=== PATIENT | female | born 1940 | race Caucasian/White ===

== ENCOUNTER 2016-10-18 01:40 | Observation (INO) | payer OTHER, MEDICARE ==
[~2016-10-18] VITALS: Ht 160 cm; Wt 71.2 kg
--- NOTE | 2016-10-18 02:52 | ED AMS/SEIZURE/WEAK/DIZZY ---
History of Present Illness General Chief Complaint: Dizziness Stated Complaint: DIZZINESS, AND NAUSEA Source: patient Exam Limitations: no limitations Vital Signs & Intake/Output Vital Signs & Intake/Output Vital Signs Date Time Temp Pulse Resp B/P B/P Pulse O2 O2 Flow FiO2 Mean Ox Delivery Rate 10/18 1453 98.8 59 18 124/68 98 / 0630 98.6 60 18 120/72 96 Room Air 10/18 0604 96.9 62 16 152/67 98 Room Air 10/18 0540 97.0 62 16 143/61 99 Room Air 10/18 0306 70 154/65 07/ 0306 97.2 70 16 157/65 98 Room Air 10/18 0147 96.9 69 15 185/73 97 Room Air Allergies Coded Allergies: NO KNOWN ALLERGIES (02/17/12) Reconcile Medications No Known Home Medications Triage Note: BIBA FROM HOME FOR C/O DIZZINESS AND NAUSEA THAT STARTED AROUND 2230 TONIGHT WHILE SITTING. DENIES LOC, INJURY OR FALL. IN NAD UPON ARRIVAL. Triage Nurses Notes Reviewed? yes HPI: Patient presents for evaluation of a severe spinning dizziness that began abruptly between 10:30 and 11:00 last evening. Patient states she had just finished bathing and was putting curlers in her hair when symptoms began. She denies any prior episodes. She denies any preceding viral symptoms chest pain palpitations headache visual changes tinnitus or trauma. Symptoms worsen with movement. Fortunately the patient's dizziness is currently resolved. Past History Travel History Traveled to [place] past 21 day No Medical History Any Pertinent Medical History? 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 No Review of Systems Review of Systems Constitutional: Reports: no symptoms. EENTM: Reports: see HPI. Respiratory: Reports: no symptoms. Cardiovascular: Reports: no symptoms. GI: Reports: no symptoms. Genitourinary: Reports: no symptoms. Musculoskeletal: Reports: no symptoms. Skin: Reports: no symptoms. Neurological/Psychological: Reports: no symptoms. Hematologic/Endocrine: Reports: no symptoms. Immunologic/Allergic: Reports: no symptoms. All Other Systems: Reviewed and Negative Physical Exam Physical Exam General Appearance: SEE BELOW Comments: Gen.: Well-nourished, well-developed, no acute respiratory distress. Head: Normocephalic, atraumatic. Eyes: Normal inspection bilaterally, Hallpike positive to the right Ears: Normal inspection bilaterally, Nose: Normal inspection Throat/mouth : Moist mucosa Neck: Supple, full range of motion, no goiter Heart: Regular rate and rhythm, systolic murmur consistent with aortic stenosis radiating up into the carotid arteries Lungs: Clear to auscultation bilaterally with normal air entry Chest: Nontender Back: Normal range of motion Abdomen: Soft, nontender, nondistended, normal bowel sounds Extremities: Normal range of motion grossly, equal radial pulses, no cyanosis clubbing or edema Neurologic: Cranial nerves grossly intact, speech is clear Skin: warm and dry Psychiatric: Calm, cooperative, no apparent delusions or hallucinations Core Measures ACS in differential dx? No CVA/TIA Diagnosis: No Severe Sepsis Present: No Septic Shock Present: No Progress Differential Diagnosis: arrythmia, anemia, benign positional vertigo, CVA/stroke , dehydration, GI bleed, hypoglycemia, hypoxia, postural hypotension, vertebrobasilar insuff, VERTIGO Plan of Care: Orders Procedure Date/time Status CBC WITHOUT DIFFERENTIAL 10/19 0600 Active Regular Diet 10/18 B Active PROTHROMBIN TIME 10/18 1305 Complete CBC WITHOUT DIFFERENTIAL 10/18 1200 Complete BLOOD PRODUCT PICKUP 10/18 0758 Active Vital Signs 10/18 0638 Active Teach/Educate 10/18 06 Active Pain Treatment and Response 10/18 06 Active Nutritional Intake, Monitor 10/18 06 Active Isolation 10/18 06 Active Intake & Output 10/18 06 Active Patient Care Conference 10/18 06 Active Activity/Ambulation 10/18 06 Active BLOOD PRODUCT PICKUP 10/18 0531 Active Pathway - chart 10/18 526 Active Lab Add-on Test 10/18 526 Active Lab Add-on Test 10/18 524 Active Pathway - chart 10/18 05 Active Patient Data 10/[address] in observation 10/18 512 Active Misc Message 10/18 512 Active ED Holding Orders 10/18 512 Active Vital Signs 10/18 512 Active Code Status 07/02 0513 Active Patient Data 10/18 0426 Active TYPE & SCREEN (NOT X-MATCH) 10/18 0340 Complete LEUKOCYTE POOR (PACKED CELLS) 10/18 0328 Active TOTAL IRON BINDING CAPACITY 10/18 0303 Active RETICULOCYTE COUNT 10/18 0303 Complete GLYCOSYLATED HGB 10/18 0303 Active FOLIC ACID 10/18 0303 Active FERRITIN 10/18 0303 Active SERUM IRON 10/18 0303 Active VITAMIN B12 10/18 0303 Active MISTAKE 10/18 0251 Active THYROID STIMULATING HORMONE 10/18 0251 Active TROPONIN LEVEL 10/18 0251 Active CBC WITHOUT DIFFERENTIAL 10/18 025 Complete BASIC METABOLIC PANEL 10/18 0251 Active EKG 10/18 0251 Active Intake & Output 10/18 0148 Active VTE Mechanical Prophylaxis 10/18 UNK Active MISTAKE 10/18 UNK Active Nursing Misc 10/18 UNK Active Hemoccult 10/18 UNK Active Heat/Cold Therapy 10/18 UNK Active ECHOCARDIOGRAM 10/18 UNK Active Current Medications Sig/Ihsan Start time Last Medication Dose Stop Time Status Admin Acetaminophen 650 MG Q6P PRN 10/18 0530 AC (Tylenol) Acetaminophen/ 1 TAB Q6P PRN 10/18 0530 AC Hydrocodone Bitart (Vicodin) Oxycodone/ 2 TAB Q6P PRN 10/18 0530 AC Acetaminophen (Percocet) Laboratory Tests 10/18/16 1357: PT 12.5, INR 1.19 10/18/16 1255: CBC w Diff MAN DIFF ORDERED, RBC 4.77, MCV 64.9 L, MCH 19.5 L, RDW 30.0 H, MPV 8.1, Gran % 59.8, Lymphocytes % 28.9, Monocytes % 9.6 H, Eosinophils % 1.7, Basophils % 0 L, Absolute Granulocytes 3.8, Absolute Lymphocytes 1.8, Absolute Monocytes 0.6, Absolute Eosinophils 0.1, Absolute Basophils 0, Platelet Estimate VERIFIED BY SMEAR, Polychromasia 1+, Hypochromic-Microcytic 2+, Poikilocytosis 1 +, Anisocytosis 2+, Microcytic Cells 2+, Ovalocytes 1+, Elliptocytes , Schistocytes , PUBS MCHC 30.0 L 10/18/16 0303: Anion Gap 9, Estimated GFR > 60, BUN/Creatinine Ratio 17.8, Glucose 113 H, Hemoglobin A1c Pending, Calcium 8.8, Iron 10 L, TIBC 438, Ferritin 3.4 L, Troponin I < 0.01, Vitamin B12 327, Folate 19.1, TSH 2.960, CBC w Diff MAN DIFF ORDERED, RBC 3.84 L, MCV 57.3 L, MCH 16.5 L, RDW 21.6 H, MPV 7.5, Segmented Neutrophils 83 H, Lymphocytes 12 L, Monocytes 3, Eosinophils 1, Basophils 1, Platelet Estimate ADEQUATE, Polychromasia 1+, Hypochromic-Microcytic 3+, Poikilocytosis 2+, Anisocytosis 3+, Microcytic Cells 3+, Elliptocytes 2+, PUBS MCHC 28.7 L, Retic Count 1.65 Diagnostic Imaging: Discussed w/RAD: CT Scan. Radiology Impression: PATIENT: GALA HUNTER PRESENT AGE: 76 PATIENT ACCOUNT NO: [id number] : 40 LOCATION: ER ORDERING PHYSICIAN: SHARAD MILLER MD SERVICE DATE: 10/18/16 EXAM TYPE: CAT - CT HEAD WO IV CONTRAST EXAMINATION: CT HEAD WITHOUT CONTRAST CLINICAL INFORMATION: Dizziness. Nausea. COMPARISON: None TECHNIQUE: Contiguous axial imaging was performed from the skull base to vertex without intravenous administration of contrast. DLP: 565.17 mGy-cm FINDINGS: There is no evidence of acute intracranial hemorrhage or territorial infarction. No abnormal mass effect or midline shift is seen. Paulino to white matter differentiation is well preserved. No extra-axial fluid collections are identified. There is atrophy with prominence of the ventricles and the sulci and hypodensity of the periventricular white matter due to chronic small vessel ischemic disease. There is vascular calcifications of the internal carotid arteries bilaterally. The osseous structures and soft tissues are normal. The mastoid air cells and visualized portions of the paranasal sinuses are well aerated. IMPRESSION: No acute intracranial pathology. DICTATED BY: RONALD MORAN MD DATE/TIME DICTATED:[address] CLAIMS [address] RIGHT OF WAY:TERRENCE DATE/TIME TRANSCRIBED:10/18/16324 CONFIDENTIAL, DO NOT COPY WITHOUT APPROPRIATE AUTHORIZATION. <Electronically signed in Other Vendor System> SIGNED BY: RONALD MORAN MD 10/18/16 0330 Initial ED EKG: NSR, rate (64), nonspecific ST T wave chg Comments: 10/18/2016 3:49:50 AM I have updated Gala on test results. She states that she did have a blood transfusion when she was much younger. She states that there is a number of family members with iron deficiency anemia. She declined rectal examination given the likelihood that this is iron deficiency. Transfusion is ordered to be given emergently given the patient's symptoms. Departure Departure Disposition: STILL A PATIENT Condition: Stable Clinical Impression Primary Impression: Symptomatic anemia Secondary Impressions: ST segment changes on electrocardiogram Referrals: OBINNA SAUCEDO,HILDA Hardin (PCP/Family) Departure Forms: Customer Survey General Discharge Information Prescriptions: Current Visit Scripts No Known Home Medications Observation Note Sp[facility] With: [facility]YL CON[facility] Physician Advisor Notified: SARA SAUCEDO,VALENCIA Carlos Place Patient In: Non-ED OBS Care Area Rationale for Observation: My rational for observation is as follows patient has a severe anemia with symptoms consisting of severe dizziness/vertigo. Her symptoms make her a poor candidate for outpatient management given the difficulties in compliance with outpatient treatment. She would be at risk of falling with subsequent injury. I feel she now requires hospitalization for blood transfusion and repeat hematocrit and hemoglobin. This patient also has nonspecific ST segment changes on EKG that could reflect demand ischemia given her decreased oxygen carrying capacity of the blood. Repeat EKG and troponin should be considered to monitor for any acute changes. Critical Care Note Critical Care Note Critical Care Time: 30-74 min
[2016-10-18 03:08] LABS: MEAN CORPUSCULAR HGB 16.5 PG (27.0-31.0); RED BLOOD CELL CT 3.84 /CUMM (4.20-5.40); WHITE BLOOD CELL COUNT 7.2 /CUMM (4.8-10.8)
[2016-10-18 03:15] LABS: MEAN CORPUSCULAR HGB CONC 28.7 G/DL (33.0-37.0); MEAN CORPUSCULAR VOLUME 57.3 FL (81.0-99.0); MEAN PLATELET VOLUME 7.5 FL (7.4-10.4); PLATELET COUNT 369 /CUMM (130-400); RBC DISTRIBUTION WIDTH 21.6 % (11.5-14.5)
--- NOTE | 2016-10-18 03:30 | CT SCAN REPORT ---
EXAMINATION: CT HEAD WITHOUT CONTRAST CLINICAL INFORMATION: Dizziness. Nausea. COMPARISON: None TECHNIQUE: Contiguous axial imaging was performed from the skull base to vertex without intravenous administration of contrast. DLP: 565.17 mGy-cm FINDINGS: There is no evidence of acute intracranial hemorrhage or territorial infarction. No abnormal mass effect or midline shift is seen. Paulino to white matter differentiation is well preserved. No extra-axial fluid collections are identified. There is atrophy with prominence of the ventricles and the sulci and hypodensity of the periventricular white matter due to chronic small vessel ischemic disease. There is vascular calcifications of the internal carotid arteries bilaterally. The osseous structures and soft tissues are normal. The mastoid air cells and visualized portions of the paranasal sinuses are well aerated. IMPRESSION: No acute intracranial pathology.
--- NOTE | 2016-10-18 04:29 | History & Physical ---
CASIMIRO SAUCEDO,[facility] 10/18/16 0429: General Information and HPI MD Statement: I have seen and personally examined ELIANE HUNTER and documented this H&P. Source of Information: patient Exam Limitations: no limitations History of Present Illness: Patient is a 76-year-old female with no significant past medical history presenting with chief complaint of dizziness. Patient states that she is taking a bath and then at around 10:30 she was lying down. When she stood up she began to have dizziness in the room began spinning. She notes she also had a slight headache when the dizziness occurred. She said the symptoms lasted from about 10:45 to 11:00PM on October 17, 2016. She has never had this happen before. The dizziness was worse with movement. She called out to her and then 911 was called and she was brought to the hospital via ambulance. She states her symptoms of dizziness are currently resolved. She denies any sick contacts, fever, changes in her vision, tinnitus, ear fullness, trauma, numbness, weakness , gait changes, double vision, or dysarthria. Head CT was negative for any acute changes. A Gisell-Hallpike maneuver was performed at the bedside in the emergency department which did not reproduce any of her symptoms or nystagmus. Of note, she was found to have a microcytic anemia. Her hemoglobin was 6.3, her hematocrit was 22.0, her MCV was 57.3. She states she has a family history of iron deficiency anemia. She was given 2 units of blood. She has not seen a primary care physician in over 5 years. She has no history of colonoscopy. She denies any other bleeding. She states her stool is brown and denies any blood in her stool. She does note that she has some blood while wiping when she is constipated possibly due to the constipation or possibly a hemorrhoid. She currently does not want a stool guaiac test or rectal exam. She has agreed to have one performed later on. 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 Home (with ) Primary Language: Uzbek Smoking Status: Never Smoked ETOH Use: denies use Illicit Drug Use: denies illicit drug use Functional Ability Ambulation: independent Review of Systems Review of Systems Constitutional: Denies: chills, diaphoresis, fever, malaise, weakness, unexplained weight loss. EENTM: Denies: visual changes, eye pain, hearing changes (tinnutus,hearing loss,fullnes ). Cardiovascular: Reports: no symptoms. Respiratory: Reports: no symptoms. GI: Denies: diarrhea, nausea, bloody stool, changes in stool, vomiting. Genitourinary: Reports: no symptoms. Musculoskeletal: Reports: no symptoms. Neurological/Psychological: Reports: headache. Denies: ataxia, numbness. Hematologic/Endocrine: Denies: bruising, bleeding. Exam & Diagnostic Data Last 24 Hrs of Vital Signs/I&O Vital Signs Date Time Temp Pulse Resp B/P B/P Pulse O2 O2 Flow FiO2 Mean Ox Delivery Rate 10/18 0604 96.9 62 16 152/67 98 Room Air 10/18 0540 97.0 62 16 143/61 99 Room Air 10/18 0306 70 154/65 07/ 0306 97.2 70 16 157/65 98 Room Air / 0147 96.9 69 15 185/73 97 Room Air Intake & Output 10/18 0800 / 0000 07/ 1600 Intake Total Output Total Balance Patient 157 lb Weight Weight Estimated Measurement Method Physical Exam General Appearance Alert, Oriented X3, Cooperative, No Acute Distress Skin No Rashes Skin Temp/Moisture Exam: Warm/Dry Sepsis Skin Exam (color): Normal for Ethnicity HEENT Atraumatic, PERRLA, EOMI, CN2-12 intact Cardiovascular Regular Rate, Normal S1, Normal S2, No Murmurs Lungs Clear to Auscultation Abdomen Normal Bowel Sounds, Soft, No Tenderness Neurological Normal Gait, Normal Speech, Strength at 5/5 X4 Ext, Normal Tone, Sensation Intact, Cranial Nerves 3-12 NL, slight R facial droop Extremities No Clubbing, No Cyanosis, No Edema Vascular Normal Pulses Last 24 Hrs of Labs/Andrew: Laboratory Tests 10/18/16 0303: Anion Gap 9, Estimated GFR > 60, BUN/Creatinine Ratio 17.8, Glucose 113 H, Hemoglobin A1c Pending, Calcium 8.8, Iron 10 L, TIBC 438, Ferritin 3.4 L, Troponin I < 0.01, Vitamin B12 327, Folate 19.1, TSH 2.960, CBC w Diff MAN DIFF ORDERED, RBC 3.84 L, MCV 57.3 L, MCH 16.5 L, RDW 21.6 H, MPV 7.5, Segmented Neutrophils 83 H, Lymphocytes 12 L, Monocytes 3, Eosinophils 1, Basophils 1, Platelet Estimate ADEQUATE, Polychromasia 1+, Hypochromic-Microcytic 3+, Poikilocytosis 2+, Anisocytosis 3+, Microcytic Cells 3+, Elliptocytes 2+, PUBS MCHC 28.7 L, Retic Count 1.65 Diagnostic Data Other Results CT scan: No acute intracranial pathology. Assessment/Plan Assessment: A: Patient is a 76-year-old female with a family of irondeficiency anemia presenting with a resolved single episode of dizziness/vertigo who was also incidentally found to have microcytic anemia and abnormal EKG changes concerning for possible ACS. She has received 2 units of blood. P: 1. Microcytic anemia Her hemoglobin was 6.3, her hematocrit was 22.0, her MCV was 57.3. She states she has a family history of iron deficiency anemia and was given 2 units of blood. She has not seen a primary care physician in over 5 years. She has no history of colonoscopy. She will need to be worked up to determinet he cause of her anemia. She declined a rectal exam and guiac test when I talked to her. She did state that she would agree to a rectal exam later on. -f/u attending note -f/u post transfusion cbc, bmp, and anemia labs -start guiac, consider GI consult if guiac positive -maintain H&H above 8.0 and 24.0 -maintain fluids 2. Dizziness/vertigo Patient states the dizziness lasted for 15 minutes after she stood up. She has never had this happen before. The dizziness was worse with movement. She denies any sick contacts, fever, or trauma. She denies any symptoms of peripheral veritgo such as changes in her vision, tinnitus, and ear fullness which would make. A Gisell-Hallpike maneuver was performed at the bedside in the emergency department which did not reproduce any of her symptoms or nystagmus. She denies any symptoms of of central vertigo such as numbness, weakness, gait changes, double vision, or dysarthria. She did have a slight smile droop on the right side. However a negative CT w/o contrast would make a stroke very unlikely. Her symptoms have resolved. Another possible cause could have been orthostatic hypotension. We will have orthostatic testing order to rule this out. -f/u orthostatic testing -meclizine and zofran as needed 3. Diet -regular 4. DVT prophylaxis -Alps 5. Code status -Full code As Ranked By This Provider Problem List: 1. Anemia 2. Vertigo Core Measures/Miscellaneous Acute Coronary Syndrome ACS Diagnosis: No Cerebrovascular Accident CVA/TIA Diagnosis: No Congestive Heart Failure CHF Diagnosis: No VTE (View Protocol) VTE Risk Factors: Acute medical illness, Age > 40 No Mech VTE prophylaxis d/t: No contraindications No VTE Pharm Prophylaxis d/t: Active bleeding VTE Diagnosis: No VTE Type: NONE VTE Confirmed by (Test): NONE Sepsis (View Protocol) Severe Sepsis Present: No Septic Shock Septic Shock Present: No Miscellaneous Documentation Attending Case Discussed With: MATIAS SAUCEDO,ZARA Rosario Primary Care Physician: HILDA YEBOAH MD Patient sees these Specialists NA Level of Patient Care: General Medicine JAYJAY SAUCEDO,MARYCARMEN 10/18/16 0528: Observation Initial Note - I have personally examined ELIANE HUNTER on 10/18/16 at 2047. The disposition of ELIANE HUNTER is uncertain at this time and before a determination can be made, she requires a period of observation for the following reasons [] Resident Review Statement Resident Statement: examined this patient, discussed with international account executive, agreed with international account executive Other Findings: Ms Hunter is a 76-year-old female with limited past medical history who presented to the emergency department on 10/18/2016 complaining of dizziness and a mild headache. Patient states she was in a normal state of health up until the early evening of 10/17/2016. She states she just had a bath and after doing her hair she was lying on a couch, as she alighted off the couch, the patient noticed that she felt the entire room was spinning and she was unable to ambulate. She further called her who called EMS and the patient was brought in by ambulance. Patient has not seen a primary care physician know 5 years. Patient denies any changes to her stool. Stool is normally brown. She does endorse occasional blood loss seen in the toilet which she attributes to hemorrhoids. She denies any genitourinary symptoms and states she has not experienced any vaginal bleeding. Lives at home with . Has not seen a GI Specialist or had GI workup in the past. Family history is positive for: CHF in mother, passed at 95. Father passed due to pneumocosis. ROS:At the time of our clinical interaction she denies nausea, vomiting, fever, chills, heart palpitations, shortness of breath, vision changes, lightheadedness. E: Physical Examination: V: Temperature 96.9, pulse 69, respiration 15, blood pressure 185/73, saturating 98% on room air. General Appearance: AOX3 Head: atraumatic Eyes:PERRLA, EOMI Ears, Nose, Throat: normal pharynx, normal ENT inspection, hearing grossly normal Neck: normal inspection, supple, No lymphadenopathy Cardiovascular: regular rate/rhythm Respiratory: CTA Abdomen: BS+. Non Tender. No guarding or rebound. : Deferred. Neurologic: CN 2-12 WNL. L: A/P: This is a 76-year-old female with limited past medical history who has not seen a primary care physician in 5 years. Presents today with dizziness. There are cause of her dizziness is likely anemia owing to drop in H&H. Likely chronic in nature given the fact that she's not seen a healthcare profession for blood work in the last five years. #Symptomatic Anemia resulting in Presyncope Admit her to general medicine. Maintain two Large Bore IVs. Transfuse 2 units of PRBCs. We will check a CBC post transfusion to make sure patient responded. Repeat CBC every 8 hours. Maintain H&H above 8.0 and 24.0 respectively. Consider GI consultation in a.m. If patient exhibits any signs of acute blood loss inform GI stat. Total iron, ferritin, TIBC, B12, folic acid been ordered. Reticulocyte count has been ordered. Avoid NSAIDs throughout admission. Guaiac all stools. Orthostatics. #Rule out ACS Initial troponin was less than 0.01. No ST elevations appreciated. Echocardiogram to rule out cardiomyopathy in the setting of Acute anemia. Minor changes in EKG likely chronic in Nature. #Nausea Nausea QTC on EKG admission 454. Zofran when necessary for nausea. #Vertigo Meclizine as needed. #Diet regular #DVT prophylaxis Alps #Code Full code ZARA SALCEDO MD 10/18/16 0849: Observation Initial Note - I have personally examined ELIANE HUNTER on 10/18/16 at 0850. The disposition of ELIANE HUNTER is uncertain at this time and before a determination can be made, she requires a period of observation for the following reasons Severe microcytic iron deficiency anemia suspected of chronic occult blood loss being transfused and needs a GI eval to see whether the workup needs to be done inpatient or outpatient. Attending MD Review Statement Attending Statement Attending MD Statement: examined this patient, discuss w/resident/PA/PRODUCTION PROOFREADER, agreed w/resident/PA/PRODUCTION PROOFREADER, reviewed EMR data (avail), discussed with nursing, reviewed images Attending Assessment/Plan: 86-year-old female no real past medical history but hasn't seen a PCP in 5 years here with severe symptomatic anemia. The fact that she has such severe microcytosis and a hemoglobin of 6 suggests that this has been going on for a while. There appears to be no overt CHIEF TECHNICIAN, or GI blood loss. Nonetheless she is 76 and will need a GI workup. I don't appreciate any ST-T changes in response to the severe anemia or any troponin elevations. She is being transfused 2 units as ordered by the ER, will put her on Alps for DVT prophylaxis, will have a formal GI eval to see whether she needs the workup as an inpatient or an outpatient. The fact that she has such severe microcytosis and a family history of iron deficiency anemia may link to some form of Thal trait or Thal substrate with blood loss added on top of that.
[2016-10-18 06:30] VITALS: BP 120/72
--- NOTE | 2016-10-18 13:04 | PN- Att Addend ---
Attending Addendum Attending Brief Note patient was visited and examined today. She has received to Units of blood. Offers no complains. Ph/ex: AOx3, HEET: WNL, No abdminal pain and tenderness. Vital signs are stable. Guiac test:??? and orthostatic was positive by drop of 10 mmhg in sys BP. Assessment and plan: extend Obs for another 24 h repeat labs at noon If Hgb <7 transfuse otherwise repeat labs in the am Plan to D/C and follow up with GI service as an out patient for Colonoscopy
[2016-10-18 14:12] LABS: ABSOLUTE BASOPHIL COUNT 0 /CUMM (0.0-0.2); ABSOLUTE EOSINOPHIL COUNT 0.1 /CUMM (0.0-0.7); ABSOLUTE GRANULOCYTE CT 3.8 /CUMM (1.4-6.5); ABSOLUTE LYMPH COUNT 1.8 /CUMM (1.2-3.4); ABSOLUTE MONOCYTE COUNT 0.6 /CUMM (0.10-0.60); BASOPHIL % 0 % (0.0-2.0); EOSINOPHIL % 1.7 % (0-5); GRANULOCYTE % 59.8 % (42.2-75.2); MEAN PLATELET VOLUME 8.1 FL (7.4-10.4); PLATELET COUNT 356 /CUMM (130-400); RED BLOOD CELL CT 4.77 /CUMM (4.20-5.40); WHITE BLOOD CELL COUNT 6.3 /CUMM (4.8-10.8)
--- NOTE | 2016-10-18 14:15 | Cons- Gastroenterology ---
See Addendum General Information and HPI Consulting Request Date of Consult: 10/18/16 Requested By: MATIAS SAUCEDO,ZRAA Rosario Reason for Consult: Iron deficiency anemia Source of Information: patient, old records Exam Limitations: no limitations History of Present Illness: Mrs. Chowdhury a 76-year-old female who is generally in [facility], and now presenting with chief complaint of dizziness. Patient gives history of pre- syncopy on standing in AM yesterday. No CP, SOB, palpatations, loss of conciosuness. No sick contacts, fever, changes in her vision, tinnitus, ear fullness, trauma, numbness, weakness, gait changes, double vision, or dysarthria. She states that there is a family history of iron deficiency anemia. Patient herself has no previous record of anemia, however she has not had a colonoscopy. She has been taking Nexium for the last 6-8 weeks because she's been getting reflux symptoms particularly after meals. This is however a relatively recent occurrence for her. Her father in his 70s from complications of lung disease secondary to mining. Her mother in her 90s. No family history of GI problems specifically no family history of colon cancer. She has a normal diet, gained approximately 20 pounds many years ago when she had her children. She has not had any recent loss of appetite all loss in weight. Allergies/Medications Allergies: Coded Allergies: NO KNOWN ALLERGIES (02/17/12) Home Med List: No Known Home Medications Past History Travel History Traveled to [place] past 21 day No Medical History Blood Transfusion Hx: Yes Neurological: dizziness, vertigo, NONE EENT: NONE Cardiovascular: NONE Respiratory: NONE Gastrointestinal: NONE Hepatic: NONE Renal: NONE Musculoskeletal: NONE Psychiatric: NONE Endocrine: NONE Blood Disorders: NONE Cancer(s): NONE SHAKE FEEDER/Reproductive: NONE Surgical History Surgical History: non-contributory Family History Relations & Conditions If Any: Relation not specified for: Iron deficiency anemia Psychosocial History Where Do You Live? Home (with ) Primary Language: Spanish Smoking Status: Never Smoked ETOH Use: denies use Illicit Drug Use: denies illicit drug use Functional Ability Ambulation: independent Exam & Diagnostic Data Vital Signs and I&O Vital Signs Date Time Temp Pulse Resp B/P B/P Pulse O2 O2 Flow FiO2 Mean Ox Delivery Rate 10/18 0630 98.6 60 18 120/72 96 Room Air 07/02 0604 96.9 62 16 152/67 98 Room Air 07/ 0540 97.0 62 16 143/61 99 Room Air 07/02 0306 70 154/65 07/02 0306 97.2 70 16 157/65 98 Room Air 07/02 0147 96.9 69 15 185/73 97 Room Air Intake & Output / 1600 07 0400 10/17 1600 10/17 0400 10/16 1600 10/16 0400 Intake Total 400 Output Total Balance 400 Intake, Oral 400 Patient 157 lb 157 lb Weight Weight Estimated Measurement Method Physical Exam: General Appearance Alert, Oriented X3, Cooperative, No Acute Distress Skin No Rashes Skin Temp/Moisture Exam: Warm/Dry Sepsis Skin Exam (color): Normal for Ethnicity HEENT Atraumatic, PERRLA, EOMI, CN2-12 intact Cardiovascular Regular Rate, Normal S1, Normal S2, No Murmurs Lungs Clear to Auscultation Abdomen Normal Bowel Sounds, Soft, No Tenderness Neurological Normal Gait, Normal Speech, Strength at 5/5 X4 Ext, Normal Tone, Sensation Intact, Cranial Nerves 3-12 NL, slight R facial droop Extremities No Clubbing, No Cyanosis, No Edema Vascular Normal Pulses Assessment/Plan Assessment/Recommendations: In summary we have a 76-year-old lady presenting with presyncope and severe iron to anemia and lack of appropriate reticulocytosis. Patient has already received 2 units of packed red blood cells and feels significantly better. The development of iron deficiency anemia clearly occurred over significant period of time, but we do not have previous lab values to determine this time course. Please check posturals after the transfusion. Patient to have an outpatient colonoscopy. I have asked her to contact our GI office and we will be happy to undertake an elective outpatient colonoscopy in the near future. Please hold off on by mouth iron until after colonoscopy. Consult Acknowledgment - Thank you for your consult request.
[2016-10-18 14:18] LABS: PT 12.5 SEC (9.4-12.5)
[2016-10-18 14:48] LABS: MEAN CORPUSCULAR HGB 19.5 PG (27.0-31.0); MEAN CORPUSCULAR VOLUME 64.9 FL (81.0-99.0)
[2016-10-18 14:53] VITALS: BP 124/68
--- NOTE | 2016-10-18 18:55 | Patient Discharge Instructions ---
Discharge Instructions General Discharge Information You were seen/treated for: Iron deficiency anemia You had these procedures: 2 units of blood transfusion Watch for these problems: Dizziness Fall Fever Chest pain Syncope Blood in stool Special Instructions: 1. Please follow up with your PCP in one week 2. Please follow up with your GI doctor for colonoscopy as soon as you leave the hospital. 3. Do not take any anticoagulants including baby ASA. 4. Please do not take any iron supplementation prior to colonoscopy Diet Continue normal diet: Yes Activity Activity Self Limited: Yes Acute Coronary Syndrome Inclusion Criteria At DC or during hospital stay patient has or had the following: ACS DIAGNOSIS No Discharge Core Measures Meds if any: Prescribed or Continued at Discharge Meds if any: NOT Prescribed or Continued at Discharge Congestive Heart Failure Inclusion Criteria At DC or during hospital stay patient has or had the following: CHF DIAGNOSIS No Discharge Core Measures Meds if any: Prescribed or Continued at Discharge Meds if any: NOT Prescribed or Continued at Discharge Cerebrovascular accident Inclusion Criteria At DC or during hospital stay patient has or had the following: CVA/TIA Diagnosis No Discharge Core Measures Meds if any: Prescribed or Continued at Discharge Meds if any: NOT Prescribed or Continued at Discharge Venous thromboembolism Inclusion Criteria VTE Diagnosis No VTE Type NONE VTE Confirmed by (Test) NONE Discharge Core Measures - Per Current guidelines, there needs to be overlap - treatment for the first 5 days of Warfarin therapy. - If discharged on Warfarin prior to 5 days of - overlap therapy, the patient will need to be - assessed for post discharge needs including - *Post discharge parental anticoagulation - *Warfarin and/or parental anticoagulation education - *Follow up date to check INR post discharge At least 5 days overlap therapy as Inpatient No Meds if any: Prescribed or Continued at Discharge Note: Overlap Therapy is Warfarin and Anticoagulant Meds if any: NOT Prescribed or Continued at Discharge
[2016-10-18 22:12] VITALS: BP 122/60
[2016-10-19 06:47] VITALS: BP 130/74
--- NOTE | 2016-10-19 08:36 | PN- Housestaff ---
JOHN SAUCEDO,CARLTON 10/19/16 0836: Subjective Follow-up For: Synptomatic anemia clonoscopy abnormal ekg Complaints: no complaints Subjective: I have seen and examined the patient. No acute overnight events. She wants to go home. No complaint of dizziness chest pain shortness of breath or palpitations. Review of Systems Constitutional: Reports: no symptoms. Cardiovascular: Denies: chest pain, palpitations. Respiratory: Denies: cough, short of breath, stridor, wheezing. Gastrointestinal: Reports: constipation. Denies: nausea, vomiting. Genitourinary: Reports: no symptoms. Musculoskeletal: Reports: no symptoms. Objective Last 24 Hrs of Vital Signs/I&O Vital Signs Date Time Temp Pulse Resp B/P B/P Pulse O2 O2 Flow FiO2 Mean Ox Delivery Rate 10/19 646 97.6 54 16 130/74 96 Room Air 10/18 221 98.3 64 20 122/60 96 Room Air Intake & Output 10/19 1600 10/19 0800 10/19 0000 Intake Total 950 Output Total 825 Balance 125 Intake, Oral 950 Number 1 Bowel Movements Output, Urine 825 Physical Exam General Appearance: Alert, Oriented X3, Cooperative Skin: No Rashes, No Breakdown Neck: Supple Cardiovascular: Normal S1, Normal S2 Lungs: Clear to Auscultation, Normal Air Movement Abdomen: Normal Bowel Sounds, Soft, No Tenderness Neurological: Normal Speech Extremities: No Cyanosis, No Edema Current Medications: Current Medications Sig/Ihsan Start time Last Medication Dose Route Stop Time Status Admin Acetaminophen 650 MG Q6P PRN 10/18 0530 DCD PO Acetaminophen/ 1 TAB Q6P PRN 10/18 0530 DCD Hydrocodone Bitart PO Oxycodone/ 2 TAB Q6P PRN 10/18 0530 DCD Acetaminophen PO Last 24 Hrs of Lab/Andrew Results Last 24 Hrs of Labs/Mics: Laboratory Tests 10/19/16 0740: CBC w Diff MAN DIFF ORDERED, RBC 4.93, MCV 64.7 L, MCH 19.4 L, RDW 29.5 H, MPV 8.0, Gran % 49.7, Lymphocytes % 36.5, Monocytes % 9.8 H, Eosinophils % 4.0, Basophils % 0 L, Absolute Granulocytes 3.1, Segmented Neutrophils 49, Absolute Lymphocytes 2.3, Lymphocytes 38, Monocytes 7, Absolute Monocytes 0.6, Eosinophils 6 H, Absolute Eosinophils 0.2, Absolute Basophils 0, Platelet Estimate ADEQUATE, Polychromasia 1+, Hypochromic-Microcytic 2+, Poikilocytosis 2 +, Anisocytosis 2+, Microcytic Cells 2+, Ovalocytes 1+, Elliptocytes 1+, PUBS MCHC 30.0 L Assessment/Plan Assessment: Patient is a 76-year-old female with no significant past history. She presented with chief complaint of dizziness on October 17. Her symptoms lasted for 15 minutes. The dizziness becomes worse with movement. Head CT done in ER was negative. A Fulda-Hallpike maneuver performed in the ER did not produce any nystagmus. She was found to have microcytic anemia. Her H&H was 6.3, 22.0. Her MCV was 57.3. She has not seen a primary care physician in 5 years. She denies any blood in her stool. She notes some blood on wiping and contributes it to constipation. She was treated for following problems. Microcytic anemia: Given her H&H of 6.3 and 22.0 dizziness was probably due to anemia. * she was given 2 units of blood over 4hours. Her HPI improved to 9. * She has no history of colonoscopy. Presumed source is GI bleed. Will follow up with GI for outpatient endoscopy and colonoscopy as soon as possible. * Follow-up with PCP. GERD * Short course of PO PPIs * Follow-up PCP. Abnormal EKG FINDING Her EKG showed abnormal changes with left anterior fascicular block and LVH * follow up with PCP. Problem List: 1. Symptomatic anemia 2. Vertigo Pain Ratin Pain Location: none Pain Goal: Pain 4 or less Pain Plan: na Tomorrow's Labs & Rationales: discharging ZARA SALCEDO MD 10/19/16 0955: Attending MD Review Statement Attending Statement Attending MD Statement: examined this patient, discuss w/resident/PA/ACCOUNT GENERAL MANAGER, agreed w/resident/PA/ACCOUNT GENERAL MANAGER, reviewed EMR data (avail), discussed with nursing Attending Assessment/Plan: Spoke to the patient at length. She feels well and is eager to go home. She is a 76-year-old female no significant past medical history but hasn't seen Dr. Grimes for the past 5 years who was admitted with profound microcytic anemia that was found to be iron deficiency. At this point presumed source is GI blood loss given that she notices blood when she wipes herself on the toilet which she has attributed to constipation and hemorrhoids. We transfused her-2 units slowly over 4 hours each and her hemoglobin has reached in the 9 range. She is not dizzy she's not tachycardic. She was seen by the GI service Dr. Yu yesterday and I did speak to him. He spoke to the patient and the plan is that she is going to call and schedule an appointment JONATHAN for an outpatient endoscopy and colonoscopy. She is having some fairly new reflux symptoms so I'll give a PO PPI for a short course until she sees GI. She's not going to start iron until after the colonoscopy and she understands that. I talked to her at length about avoiding aspirin and NSAIDs like ibuprofen, Motrin etc. She says that she hasn't seen the PCP because her has been dealing with a lot of issues with prostate CA etc. but she understands that she needs to see both GI and the PCP and understands the need for close follow-up. Her EKG is markedly abnormal with LVH and a left anterior fascicular block. She's been relatively normotensive here but that needs to be followed up as well. I will speak to Dr. Grimes to ensure GI follow-up and follow-up of the EKG.
[2016-10-19 08:49] LABS: ABSOLUTE BASOPHIL COUNT 0 /CUMM (0.0-0.2); ABSOLUTE EOSINOPHIL COUNT 0.2 /CUMM (0.0-0.7); ABSOLUTE GRANULOCYTE CT 3.1 /CUMM (1.4-6.5); ABSOLUTE LYMPH COUNT 2.3 /CUMM (1.2-3.4); ABSOLUTE MONOCYTE COUNT 0.6 /CUMM (0.10-0.60); BASOPHIL % 0 % (0.0-2.0); GRANULOCYTE % 49.7 % (42.2-75.2); HEMATOCRIT 31.9 % (37-47); MEAN CORPUSCULAR HGB 19.4 PG (27.0-31.0); MEAN CORPUSCULAR VOLUME 64.7 FL (81.0-99.0); PLATELET COUNT 359 /CUMM (130-400); RBC DISTRIBUTION WIDTH 29.5 % (11.5-14.5); RED BLOOD CELL CT 4.93 /CUMM (4.20-5.40); WHITE BLOOD CELL COUNT 6.2 /CUMM (4.8-10.8)
[2016-10-19] MEDS ORDERED: OMEPRAZOLE40 M1 PO ×2 (09:09→10:10)
--- NOTE | 2016-10-19 11:32 | Discharge Summary ---
See Addendum Visit Information Visit Dates Admission Date: 10/18/16 Discharge Date: 10/19/16 Hospital Course Course Attending Physician: MATIAS SAUCEDO,ZARA Rosario Primary Care Physician: HILDA YEBOAH MD Hospital Course: Patient is a 76-year-old female with no significant past history. She presented with chief complaint of dizziness on October 17. Her symptoms lasted for 15 minutes. The dizziness becomes worse with movement. Head CT done in ER was negative. A Gisell-Hallpike maneuver performed in the ER did not produce any nystagmus. She was found to have microcytic anemia. Her H&H was 6.3, 22.0. Her MCV was 57.3. She has not seen a primary care physician in 5 years. She denies any blood in her stool. She notes some blood on wiping and contributes it to constipation. She was treated for following problems. Microcytic anemia: Given her H&H of 6.3 and 22.0 dizziness was probably due to anemia. * she was given 2 units of blood over 4hours. Her HPI improved to 9. * She has no history of colonoscopy. Presumed source is GI bleed. Will follow up with GI for outpatient endoscopy and colonoscopy as soon as possible. * Follow-up with PCP. GERD * Short course of PO PPIs * Follow-up PCP. Abnormal EKG FINDING Her EKG showed abnormal changes with left anterior fascicular block and LVH * follow up with PCP. Allergies: Coded Allergies: NO KNOWN ALLERGIES (02/17/12) Disposition Summary Disposition Principal Diagnosis: Symptomatic anemia Additional Diagnosis: Presumed GI bleed Endoscopy and colonoscopy needs to be done JONATHAN Abnormal EKG changes Discharge Disposition: home or self care Discharge Instructions General Discharge Information Code Status: Full Code Patient's Diet: Regular Patient's Activity: As tolerated Follow-Up Instructions/Appts: Follow-up with PCP. Schedule an appointment for outpatient endoscopy and colonoscopy as soon as possible. Start iron until AFTER colonoscopy. Avoid aspirin and NSAIDs like Profen and Motrin. PPI for short course. Follow-up for abnormal EKG findings Medications at Discharge Discharge Medications: Start taking the following new medications: Omeprazole (Omeprazole) 40 MG CAPSULE.DR 1 Tablet ORAL DAILY Qty = 30 No Refills Comments: NOT TAKEN IN HOSPITAL Copies To: HILDA YEBOAH MD
--- NOTE | 2016-10-19 12:47 | PN- Gastroenterology ---
Assessment/Plan Assessment/Recommendations: Iron deficiency anemia, with appropriate rise in hemoglobin/hematocrit after transfusion of 2 units of packed red blood cells. History of heartburn. Recommendations * Agree with discharge today * Follow-up CBC next week * Continue PPI, which had been started prior to hospitalization * We will arrange for outpatient EGD/colonoscopy. Instructions to contact our office have been given to the patient, and my staff have been informed. Subjective Subjective: The patient relays a history of heartburn., Other indigestion, abdominal pain, or evident blood per rectum. Objective Vital Signs and I&Os Vital Signs Date Time Temp Pulse Resp B/P B/P Pulse O2 O2 Flow FiO2 Mean Ox Delivery Rate 10/19 0647 97.6 54 16 130/74 96 Room Air 10/18 2212 98.3 64 20 122/60 96 Room Air 10/18 1453 98.8 59 18 124/68 98 Intake & Output 10/19 1600 10/19 0400 10/18 1600 10/18 0400 10/17 1600 10/17 0400 Intake Total 950 1150 Output Total 825 600 Balance 125 550 Intake, Oral 950 1150 Number 1 1 Bowel Movements Output, Urine 825 600 Patient 157 lb 157 lb Weight Weight Estimated Measurement Method Physical Exam: Sclera anicteric. Abdomen benign. Current Medications: Current Medications Sig/Ihsan Start time Last Medication Dose Route Stop Time Status Admin Acetaminophen 650 MG Q6P PRN 10/18 0530 DCD PO Acetaminophen/ 1 TAB Q6P PRN / 0530 DCD Hydrocodone Bitart PO Oxycodone/ 2 TAB Q6P PRN 10/18 0530 DCD Acetaminophen PO Results Pertinent Lab Results: Laboratory Tests 10/19 10/18 0740 1357 Coagulation PT (9.4 - 12.5 SEC) 12.5 INR (0.90 - 1.19) 1.19 Hematology CBC w Diff MAN DIFF ORDERED WBC (4.8 - 10.8 /CUMM) 6.2 RBC (4.20 - 5.40 /CUMM) 4.93 Hgb (12.0 - 16.0 G/DL) 9.6 L Hct (37 - 47 %) 31.9 L MCV (81.0 - 99.0 FL) 64.7 L MCH (27.0 - 31.0 PG) 19.4 L RDW (11.5 - 14.5 %) 29.5 H Plt Count (130 - 400 /CUMM) 359 MPV (7.4 - 10.4 FL) 8.0 Gran % (42.2 - 75.2 %) 49.7 Lymphocytes % (20.5 - 51.1 %) 36.5 Monocytes % (1.7 - 9.3 %) 9.8 H Eosinophils % (0 - 5 %) 4.0 Basophils % (0.0 - 2.0 %) 0 L Absolute Granulocytes (1.4 - 6.5 /CUMM) 3.1 Segmented Neutrophils (42.2 - 75.2 %) 49 Absolute Lymphocytes (1.2 - 3.4 /CUMM) 2.3 Lymphocytes (20.5 - 51.1 %) 38 Monocytes (1.7 - 9.3 %) 7 Absolute Monocytes (0.10 - 0.60 /CUMM) 0.6 Eosinophils (0 - 5.0 %) 6 H Absolute Eosinophils (0.0 - 0.7 /CUMM) 0.2 Absolute Basophils (0.0 - 0.2 /CUMM) 0 Platelet Estimate (ADEQUATE) ADEQUATE Polychromasia 1+ Hypochromic-Microcytic 2+ Poikilocytosis 2+ Anisocytosis 2+ Microcytic Cells 2+ Ovalocytes 1+ Elliptocytes 1+ PUBS MCHC (33.0 - 37.0 G/DL) 30.0 L 10/18 10/18 1255 0303 Chemistry Sodium (137 - 145 mmol/L) 137 Potassium (3.5 - 5.1 mmol/L) 4.3 Chloride (98 - 107 mmol/L) 105 Carbon Dioxide (22 - 30 mmol/L) 23 Anion Gap (5 - 16) 9 BUN (7 - 17 mg/dL) 16 Creatinine (0.5 - 1.0 mg/dL) 0.9 Estimated GFR (>60 ml/min) > 60 BUN/Creatinine Ratio (7 - 25 %) 17.8 Glucose (65 - 99 mg/dL) 113 H Hemoglobin A1c (4.2 - 5.8 %) 5.5 Calcium (8.4 - 10.2 mg/dL) 8.8 Iron (37 - 170 ug/dL) 10 L TIBC (265 - 497 ug/dL) 438 Ferritin (11.1 - 264 ng/mL) 3.4 L Troponin I (< 0.11 ng/ml) < 0.01 Vitamin B12 (239 - 931 pg/mL) 327 Folate (2.76 - 20.0 ng/mL) 19.1 TSH (0.270 - 4.200 uIU/mL) 2.960 Hematology CBC w Diff MAN DIFF ORDERED MAN DIFF ORDERED WBC (4.8 - 10.8 /CUMM) 6.3 7.2 RBC (4.20 - 5.40 /CUMM) 4.77 3.84 L Hgb (12.0 - 16.0 G/DL) 9.3 L 6.3 *L Hct (37 - 47 %) 31.0 L 22.0 L MCV (81.0 - 99.0 FL) 64.9 L 57.3 L MCH (27.0 - 31.0 PG) 19.5 L 16.5 L RDW (11.5 - 14.5 %) 30.0 H 21.6 H Plt Count (130 - 400 /CUMM) 356 369 MPV (7.4 - 10.4 FL) 8.1 7.5 Gran % (42.2 - 75.2 %) 59.8 Lymphocytes % (20.5 - 51.1 %) 28.9 Monocytes % (1.7 - 9.3 %) 9.6 H Eosinophils % (0 - 5 %) 1.7 Basophils % (0.0 - 2.0 %) 0 L Absolute Granulocytes (1.4 - 6.5 /CUMM) 3.8 Segmented Neutrophils (42.2 - 75.2 %) 83 H Absolute Lymphocytes (1.2 - 3.4 /CUMM) 1.8 Lymphocytes (20.5 - 51.1 %) 12 L Monocytes (1.7 - 9.3 %) 3 Absolute Monocytes (0.10 - 0.60 /CUMM) 0.6 Eosinophils (0 - 5.0 %) 1 Absolute Eosinophils (0.0 - 0.7 /CUMM) 0.1 Basophils (0.0 - 2.0 %) 1 Absolute Basophils (0.0 - 0.2 /CUMM) 0 Platelet Estimate (ADEQUATE) VERIFIED BY SMEAR ADEQUATE Polychromasia 1+ 1+ Hypochromic-Microcytic 2+ 3+ Poikilocytosis 1+ 2+ Anisocytosis 2+ 3+ Microcytic Cells 2+ 3+ Ovalocytes 1+ Elliptocytes 2+ Schistocytes PUBS MCHC (33.0 - 37.0 G/DL) 30.0 L 28.7 L Retic Count (0.5 - 2.0 %) 1.65
== END 2016-10-19 12:20 ==
LOC: ERH 01:40 → ERHI 05:13 → 2NA 05:13 → ENRESERV 05:52 → 2NA 06:28 → ENPENDDIS 10-19 10:32 → 2NA 10-19 12:20
PROVIDERS: Emergency Medicine; Student in an Organized Health Care Education/Training Program; ADMIT Internal Medicine
DX: D50.9 Iron deficiency anemia, unspecified (principal); R12 Heartburn
CPT/HCPCS: 6030; 36415; 86920; 93005; 93010; 96374; 99291; G0378; P9016

== ENCOUNTER 2017-05-26 09:47 | Observation (INO) | payer OTHER, MEDICARE ==
[~2017-05-26] VITALS: Ht 160 cm; Wt 73.9 kg
[~2017-05-26 09:47] MED LIST: OMEPRAZOLE40 M1 PO
--- NOTE | 2017-05-26 10:31 | ED AMS/SEIZURE/WEAK/DIZZY ---
History of Present Illness General Chief Complaint: Dizziness Stated Complaint: BIBA DIZZINESS ? VERTIGO Source: patient Exam Limitations: no limitations Vital Signs & Intake/Output Vital Signs & Intake/Output Vital Signs Date Time Temp Pulse Resp B/P B/P Pulse O2 O2 Flow FiO2 Mean Ox Delivery Rate 05/27 0634 97.8 61 18 133/64 96 Room Air 05/27 0633 97.8 61 18 133/64 96 Room Air 05/26 2343 97.9 72 18 118/55 95 Room Air 05/26 1640 58 20 156/67 97 Room Air 05/26 1427 97.6 61 20 176/77 99 Room Air 05/26 1227 53 141/65 02 1227 97.6 53 20 141/65 98 Room Air 05/26 0951 97.0 54 20 174/80 98 Room Air ED Intake and Output 05/27 0000 05/26 1200 Intake Total 500 Output Total Balance 500 Intake, IV 500 Patient 163 lb Weight Weight Reported by Patient Measurement Method Triage Note: PT BIBA TO TRIAGE FOR C/O DIZZINESS SINCE WAKING AT 0700. H/O SAME IN OCTOBER AND WAS FOUND TO BE ANEMIC REQUIRING BLOOD TRANSFUSIONS. DENIES ANY PAIN. Triage Nurses Notes Reviewed? yes HPI: Ms. Hunter is a 77-year-old female with a past medical history significant for symptomatic anemia, celiac disease who presents to the ED with dizziness since 7 am this morning. Patient reports when she woke up she felt lightheaded on her way to the bathroom. She had one episode of loose brown stools. Her dizziness is alleviated by laying down but exacerbated by sitting up or walking around. She reports a similar episode back in October 2016. Patient reports a good appetite and adequate hydration. She had an endoscopy and colonoscopy with biopsy in January 2017 that was benign. She denies fever, chills, nausea, vomiting, CP, palpitations, blurry vision, confusion, abdominal pain, weakness, sick contacts or urinary symptoms. (Richie SAUCEDO,Hina) Allergies Coded Allergies: gluten (celiacs 05/26/17) Reconcile Medications Esomeprazole Magnesium (Nexium) 20 MG CAPSULE.DR 1 CAP PO PRN GI (Reported) Meclizine HCl 25 MG TABLET 1 TAB PO TIDPRN PRN dizziness Scopolamine 1 MG/3 DAY PATCH.TD.3 1 PATCH TOP Q72 PRN dizziness (Heriberto Peterson MD) Past History Travel History Traveled to [place] past 21 day No Medical History Any Pertinent Medical History? 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 Yes (Hina Quiroz MD) Review of Systems Review of Systems Constitutional: Reports: see HPI. (Hina Quiroz MD) Physical Exam Physical Exam General Appearance: well developed/nourished, no apparent distress, alert, awake , comfortable, no pallor Head: atraumatic, normal appearance Eyes: Bilateral: normal appearance, PERRL, EOMI. Ears, Nose, Throat: normal pharynx, normal ENT inspection, moist mucus membranes Neck: normal inspection, supple, full range of motion Respiratory: normal breath sounds, lungs clear Cardiovascular: regular rate/rhythm, bradycardia Gastrointestinal: normal bowel sounds, soft, non-tender Extremities: no edema, normal capillary refill Neurologic/Psych: no motor/sensory deficits, anesthesiology medical doctor II-XII nml as tested, unsteady gait Skin: normal color Comments: Orthostats positive Core Measures Sepsis Present: No Sepsis Focused Exam Completed? No (Hina Quiroz MD) Core Measures ACS in differential dx? No CVA/TIA Diagnosis No (Heriberto Peterson MD) Progress Differential Diagnosis: arrythmia, anemia, benign positional vertigo, dehydration, UTI/pyelo Plan of Care: Orders Procedure Date/time Status Discharge Patient 05/27 0623 Active Gluten Free Diet 05/26 L Active Patient Data 05/[address] in observation 05/26 1533 Active ED Holding Orders 05/26 1533 Active Vital Signs 05/26 1533 Active Code Status 05/26 1533 Active Intake & Output 05/26 1037 Active Add-on Test (ER Only) 05/26 1028 Active TYPE & SCREEN (NOT X-MATCH) 05/26 1028 Complete Add-on Test (ER Only) 05/26 1009 Active URINALYSIS 05/26 1008 Complete THYROID STIMULATING HORMONE 05/26 1008 Complete TROPONIN LEVEL 05/26 1008 Complete THYROXINE 05/26 1008 Complete CBC WITHOUT DIFFERENTIAL 05/26 1008 Complete BASIC ELECTROLYTES PLUS BUN&CR 05/26 1008 Complete EKG 05/26 1005 Active MISTAKE 05/26 UNK Active Current Medications Sig/Ihsan Start time Last Medication Dose Stop Time Status Admin Meclizine HCl 12.5 MG TID PRN 05/26 1815 AC (Antivert) Dextrose/Sodium 1,000 ML Q6H 05/26 1545 AC 05/26 Chloride 1555 (D5W-1/2 Normal Saline 1000ML) Laboratory Tests 05/26/17 1202: Urinalysis LIGHT H, Urine Color YEL, Urine Clarity CLEAR, Urine pH 7.5, Ur Specific [place] 1.015, Urine Protein NEG, Urine Ketones NEG, Urine Nitrite NEG, Urine Bilirubin NEG, Urine Urobilinogen 0.2, Ur Leukocyte Esterase SMALL H, Ur Microscopic SEDIMENT EXAMINED, Urine RBC 1-3, Urine WBC 1-3 H, Ur Epithelial Cells FEW, Urine Bacteria RARE H, Urine Mucus RARE, Urine Hemoglobin NEG, Urine Glucose NEG 05/26/17 1031: Anion Gap 12, Estimated GFR > 60, BUN/Creatinine Ratio 16.3, Troponin I < 0.01, TSH 2.890, Thyroxine (T4) 10.7, CBC w Diff NO MAN DIFF REQ, RBC 4.60, MCV 65.5 L, MCH 20.1 L, MCHC 30.6 L, RDW 19.4 H, MPV 7.7, Gran % 75.8 H, Lymphocytes % 15.1 L, Monocytes % 6.4, Eosinophils % 2.6, Basophils % 0.1, Absolute Granulocytes 4.8, Absolute Lymphocytes 1.0 L, Absolute Monocytes 0.4, Absolute Eosinophils 0.2, Absolute Basophils 0 Diagnostic Imaging: Viewed by Me: CT Scan. Initial ED EKG: V3-V6 t wave inversion, old LAFB Comments: 1:50 pm: Patient was getting dressed to go home and she had a sudden onset of dizziness and was unable to stand up. CT head without contrast ordered to rule out any acute pathology. Patient will be monitored for 23 hour observation in the ED. She will also receive an IV stress dose of steroids. (Hina Quiroz MD) Hand-Off Endorsed To: Heriberto Peterson MD Endorsed Time: 1900 Pending: other (REEVALUTION) (Monique Todd MD) Hand-Off Endorsed To: Lester Carias MD Endorsed Time: 0700 Pending: other (transportation home) (Heriberto Peterson MD) Departure Departure Condition: Stable Referrals: Fred Grimes MD (PCP/Family) Additional Instructions: If symptoms persist to do hesitate to return to the ED. Keep hydrated and maintain a good appetite. Follow-up which her PCP upon discharge. Departure Forms: Customer Survey General Discharge Information (Hina Quiroz MD) Departure Prescriptions: Current Visit Scripts Scopolamine 1 PATCH TOP Q72 PRN dizziness #4 PATCH Meclizine HCl 1 TAB PO TIDPRN PRN dizziness #30 TAB Observation Note Spoke With: Monique Todd MD Physician Advisor Notified: SHARAD GAYLE DO Place Patient In: ED Observation Rationale for Observation: My rational for observation is as follows [IV FLUIDS, MECLIZINE, TRIAL BENZODIAZEPINE, TRIAL IV STEROIDS, CONSIDER NEURO CONSULTATION IF NOT IMPROVED]. PA/ENTRANCE GUARD Co-Sign Statement Statement: ED Attending supervision documentation- [] I saw and evaluated the patient. I have also reviewed all the pertinent lab results and diagnostic results. I agree with the findings and the plan of care as documented in the PA's/ENTRANCE GUARD's documentation. [] I have reviewed the ED Record and agree with the PA's/ENTRANCE GUARD's documentation. [] Additions or exceptions (if any) to the PAs/ENTRANCE GUARD's note and plan are summarized below: [] Resident Co-Sign Statement Statement: ED Attending supervision documentation- [X] I saw and evaluated the patient. I have also reviewed all the pertinent lab results and diagnostic results. I agree with the findings and the plan of care as documented in the Resident's documentation. [X] I have reviewed the ED Record and agree with the Resident's documentation. [] Additions or exceptions (if any) to the Resident's note and plan are summarized below: [] (Monique Todd MD) Departure Time of Disposition: 0800 Disposition: HOME OR SELF CARE Clinical Impression Primary Impression: Dizziness Secondary Impressions: Orthostatic hypotension (Heriberto Peterson MD) ED Attending Observation Initial Observation Note: I have seen and personally examined ELIANE HUNTER on 05/26/17 at 1532. I agree with the current emergency department documentation. The disposition (admission or discharge) is uncertain at this time, she needs a period of observation for the following reason(s): [INTRACTABLE DIZZINESS, UNABLE TO AMBULATE. CT NEGATIVE, NOT RESPONDING TO FLUIDS, MECLIZINE, BENZODIAZEPINE MEDICATIONS] The ED Nurse caring for this patient has been personally informed as to what the patient is being observed for. Observation Re-Evaluation: I have reevaluated ELIANE HUNTER on 05/26/17 at 1830 The physical findings that support the continued need to observe this patient include [IMPROVED DIZZINESS ALTHOUGH STILL LIGHTHEADED WHEN SITTING UP. FLUIDS, MECLIZINE, SOLUMEDROL ORDER IN PROCESS.]. (Perez SAUCEDO,Monique) Observation Re-Evaluation: I have reevaluated ELIANE HUNTER on 05/27/17 at 0619. The physical findings that support the continued need to observe this patient include feels better await transportation home. Observation Discharge: I have reevaluated ELIANE HUNTER on 05/27/17 at 0620. The patient is: (x): Stable for discharge (): To be admitted to Nursing Floor (): To be placed in Observation on Nursing Floor (): For transfer to other facility The patient was being observed for As a result of that observation, I have determined dizziness and gait instability. (Heriberto Peterson MD)
[2017-05-26 10:38] LABS: ABSOLUTE BASOPHIL COUNT 0 /CUMM (0.0-0.2); ABSOLUTE EOSINOPHIL COUNT 0.2 /CUMM (0.0-0.7); ABSOLUTE GRANULOCYTE CT 4.8 /CUMM (1.4-6.5); ABSOLUTE MONOCYTE COUNT 0.4 /CUMM (0.10-0.60); BASOPHIL % 0.1 % (0.0-2.0); EOSINOPHIL % 2.6 % (0-5); GRANULOCYTE % 75.8 % (42.2-75.2); HEMATOCRIT 30.1 % (37-47); MEAN CORPUSCULAR HGB 20.1 PG (27.0-31.0); MEAN CORPUSCULAR HGB CONC 30.6 G/DL (33.0-37.0); MEAN CORPUSCULAR VOLUME 65.5 FL (81.0-99.0); MEAN PLATELET VOLUME 7.7 FL (7.4-10.4); PLATELET COUNT 439 /CUMM (130-400); RBC DISTRIBUTION WIDTH 19.4 % (11.5-14.5); WHITE BLOOD CELL COUNT 6.3 /CUMM (4.8-10.8)
--- NOTE | 2017-05-26 14:40 | CT SCAN REPORT ---
EXAMINATION: CT HEAD WITHOUT CONTRAST CLINICAL INFORMATION: Dizziness and orthostatic hypotension. COMPARISON: CT scan of the head dated 10/18/2016. TECHNIQUE: Contiguous axial imaging was performed from the skull base to vertex without intravenous administration of contrast. DLP: 538.45 mGy-cm FINDINGS: There is no evidence of acute intracranial hemorrhage or territorial infarction. No abnormal mass effect or midline shift is seen. Paulino to white matter differentiation is well preserved. No extra-axial fluid collections are identified. The lateral ventricles are prominent with periventricular white matter changes; mild prominence of the sulci and sylvian fissures suggest generalized cortical volume loss. These findings are stable compared to the prior study. There is no abnormal attenuation within the brain parenchyma. The osseous structures and soft tissues are normal. The mastoid air cells are clear bilaterally, there is motion artifact during imaging which decreases the sensitivity for evaluation of the paranasal sinuses, however no air-fluid levels or definite areas of opacification are noted. IMPRESSION: 1. No acute intracranial pathology. 2. Stable chronic findings including periventricular white matter changes suggestive of chronic small vessel ischemic disease and mild cortical volume loss.
[2017-05-26] MEDS ORDERED: NEXIUM20 M1 PO (20:21)
[2017-05-27] MEDS ORDERED: SCOPOLAMINE1 EAC1 TOP ×2 (06:22→08:52)
[2017-05-27] MEDS ORDERED: MECLIZINE HCL25 MG PO ×2 (06:22→08:52)
[2017-05-27 06:33] VITALS: BP 133/64
[2017-05-27 06:34] VITALS: BP 133/64
== END 2017-05-27 09:39 ==
LOC: ERH 09:47 → ERHI 15:33
PROVIDERS: Student in an Organized Health Care Education/Training Program
DX: D64.9 Anemia, unspecified (principal); R42 Dizziness and giddiness; K90.0 Celiac disease; I95.1 Orthostatic hypotension
CPT/HCPCS: 6090; 81001; 82436; 93005; 93010; 96374; G0378; J2930; J7040; J7042